=== PATIENT | female | born 1980 ===

== ENCOUNTER 2020-06-26 11:15 | Inpatient (IN) | payer OTHER ==
[~2020-06-26] VITALS: Ht 180.3 cm; Wt 99.8 kg
[2020-06-26] MEDS ORDERED: MINASTRIN 24 F1 EACH PO (16:11)
[2020-07-01] MEDS ORDERED: PROFERRIN-FORT1 EACH (09:44)
[2020-07-01] MEDS ORDERED: INFED50 MG/ML (09:44)
== END 2020-07-04 11:28 | disposition home or self-care (01) | DRG 743 ==
LOC: O/R 07-01 06:41 → OB/GYN 07-01 06:41 → SURH 07-01 07:00 → OB/GYN 07-01 13:23
PROVIDERS: ADMIT Obstetrics & Gynecology; ATTEND Obstetrics & Gynecology
PROC: 0UB70ZZ Excision of Bilateral Fallopian Tubes, Open Approach (ICD-10-PCS; 2020-07-01)
PROC: 0UT90ZZ Resection of Uterus, Open Approach (ICD-10-PCS; principal; 2020-07-01 07:00)
DX: D25.0 Submucous leiomyoma of uterus (principal); D25.1 Intramural leiomyoma of uterus; K66.0 Peritoneal adhesions (postprocedural) (postinfection); D51.0 Vitamin B12 deficiency anemia due to intrinsic factor deficiency; N93.9 Abnormal uterine and vaginal bleeding, unspecified; N83.8 Other noninflammatory disorders of ovary, fallopian tube and broad ligament